=== PATIENT | female | born 1950 | race Caucasian/White ===

== ENCOUNTER → 2018-06-05 | Outpatient (CLI) | payer OTHER ==
[~2018-06-05] MED LIST: AUGMENTIN 875875 M1 PO; LEXAPRO 10 MG T10 M2 PO; LISINOPRIL-HCT1 EACH PO; OXYBUTYNIN CHLO15 MG PO; VICODIN ES TAB1 EACH PO
== END ==
LOC: M.CT 09:15
DX: Z13.6 Encounter for screening for cardiovascular disorders (principal)

== ENCOUNTER → 2020-01-26 | Outpatient (CLI) | payer OTHER | LOC: M.ULTRA 10:25 | DX: M17.12 Unilateral primary osteoarthritis, left knee (principal); M71.22 Synovial cyst of popliteal space [Baker], left knee; G89.29 Other chronic pain; M25.862 Other specified joint disorders, left knee ==

== ENCOUNTER → 2020-05-26 | Outpatient (CLI) | payer OTHER | LOC: M.MRI 13:20 | PROVIDERS: ATTEND Psychiatry & Neurology Neuromuscular Medicine | DX: I67.82 Cerebral ischemia (principal); G31.89 Other specified degenerative diseases of nervous system; G20 Parkinson's disease; F32.9 Major depressive disorder, single episode, unspecified ==